=== PATIENT | female | born 1950 | race Caucasian/White ===

== ENCOUNTER 2023-12-28 13:03 | Emergency (ER) | payer MEDICARE, SELFPAY ==
[2023-12-28 13:06] VITALS: BP 112/70
[2023-12-28 13:33] VITALS: BMI 22.0
[2023-12-28 13:36] VITALS: BP 114/76
--- NOTE | 2023-12-28 13:44 | ED.GENMED ---
History of Present Illness
<Alanna Ayala PA-C - Last Filed: 12/29/23 22:28>
General
Chief Complaint: Abdominal Pain
Source: patient
Exam Limitations: none
Time Seen by Provider: 12/28/23 13:25
Nursing documentation reviewed up to this point in time: agreed with
Travel History
Have you had any contact with someone who has COVID-19?: No
Do you have any symptoms of coronavirus? Fever > 100 degrees, chills, cough, shortness of breath, sore throat, loss of taste or smell, muscle aches, or headache?: No
History of Present Illness
History of Present Illness:
Patient is a 73 year old female with hx hyperlipidemia presenting to the emergency department for evaluation of worsening right upper quadrant abdominal pain and associated nausea. Patient reports intermittent pain in the right upper quadrant over
the past 3 to 4 weeks. About 3 days ago she noticed both an increase in severity of pain and that the pain became more constant in nature. Patient has not noticed any exacerbating relieving factors although she does think it might be worse prior
to going to sleep when she is lying down. She does report associated mild nausea, but no vomiting. Patient has not noticed any specific correlation with food, although she does endorse significant worsening in pain yesterday evening and difficulty
sleeping after eating meatloaf for dinner. Patient denies any fever, chills, chest pain, shortness of breath, or cough. Patient denies diarrhea or constipation. Patient denies any dysuria or increasing frequency.
Patient does have a history of kidney stones.
Patient denies any recent travel or recent surgery.
Review of Systems
<Alanna Ayala PA-C - Last Filed: 12/29/23 22:28>
Review of Systems
Allergies reviewed?: Yes
All Other Systems: ROS reviewed and negative except as documented in HPI and ROS
Phy Exam
<Alanna Ayala PA-C - Last Filed: 12/29/23 22:28>
Physical Exam
Physical Exam:
Vitals: Patient's vital signs are stable. Afebrile
General: Patient is well appearing, no acute distress
Skin: Warm and dry, no rashes or lesions
Head: Normocephalic, atraumatic
Eyes: Sclera nonicteric. EOMs intact. No nystagmus.
Throat: Protecting airway. Uvula midline
Neck: Normal ROM, no cervical spine tenderness, no meningismus
Cardiac: Regular rate and rhythm, no murmurs.
Pulm: Normal respiratory effort, no wheezes, rales, rhonchi heard on exam.
Abdomen: Soft, very mild abdominal tenderness in right upper quadrant without any rebound tenderness or guarding. No abdominal tenderness. No CVA tenderness
Extremities: No evidence of cyanosis or edema
Neuro: AAOx3. CN II-XII intact. No focal neurologic deficits.
Psychiatric: Normal affect.
Course
<Alanna Ayala PA-C - Last Filed: 12/29/23 22:28>
Orders/Labs/Results
Orders:
Orders
12/28/23 13:44
US Abdomen Complete/Upper Urgent
Comment:
Reason For Exam: Right upper quadrant pain, +nausea
12/28/23 13:45
Electrocardiogram (*1) Urgent
Reason for Study: Abdominal Pain
EKG- Treatment ONCE
12/28/23 13:47
Complete Blood Count/With Diff Urgent
Comprehensive Metabolic Panel Urgent
Lipase Urgent
Comment: LIPASE ADDED ON BY FLOOR 2:10PM 12-28-23
12/28/23 14:12
Add On- LAB Urgent
Tests Added?: lipase
12/28/23 14:38
Iohexol [Omnipaque] See Protocol PO NOW STA
12/28/23 14:53
CR Chest - 2 Views Urgent
Comment:
Reason For Exam: right upper abdominal pain
12/28/23 14:55
CT Abd/pel Without Iv Or Oral Urgent
Comment:
Reason For Exam: right upper abdominal pain
12/28/23 14:58
D-Dimer Urgent
12/28/23 15:16
Urinalysis Reflex To Culture Urgent
Date Specimen was Collected: 12/28/23
Time Specimen was Collected: 15:01
Abnormal Lab Results
12/28/23 12/28/23
13:47 15:16
RBC 4.13 L 10^6/uL
(4.20-5.40)
MCH 32.4 H pg
(27.0-31.0)
Absolute Lymphs (auto) 1.0 L 10^3/uL
(1.2-3.4)
Lymphocytes % 19.4 L %
(20.5-51.1)
Glucose 103 H mg/dl
(70-99)
Urine Ketones 1+ A
(Negative)
12/28/23 13:47
12/28/23 13:47
Vital Signs
Initial and Last Documented VS:
Initial Vital Signs
Temp Pulse Resp BP Pulse Ox
97.9 F 72 16 112/70 100
12/28/23 13:06 12/28/23 13:06 12/28/23 13:06 12/28/23 13:06 12/28/23 13:06
Last Documented Vital Signs
Temp Pulse Resp BP Pulse Ox
97.9 F 72 12 114/76 99
12/28/23 13:06 12/28/23 13:45 12/28/23 13:45 12/28/23 13:36 12/28/23 13:45
<Scotty Holland MD - Last Filed: 12/28/23 15:55>
Orders/Labs/Results
Orders:
Orders
12/28/23 13:44
US Abdomen Complete/Upper Urgent
Comment:
Reason For Exam: Right upper quadrant pain, +nausea
12/28/23 13:45
Electrocardiogram (*1) Urgent
Reason for Study: Abdominal Pain
EKG- Treatment ONCE
12/28/23 13:47
Complete Blood Count/With Diff Urgent
Comprehensive Metabolic Panel Urgent
Lipase Urgent
Comment: LIPASE ADDED ON BY FLOOR 2:10PM 12-28-23
12/28/23 14:12
Add On- LAB Urgent
Tests Added?: lipase
12/28/23 14:38
Iohexol [Omnipaque] See Protocol PO NOW STA
12/28/23 14:53
CR Chest - 2 Views Urgent
Comment:
Reason For Exam: right upper abdominal pain
12/28/23 14:55
CT Abd/pel Without Iv Or Oral Urgent
Comment:
Reason For Exam: right upper abdominal pain
12/28/23 14:58
D-Dimer Urgent
12/28/23 15:16
Urinalysis Reflex To Culture Urgent
Date Specimen was Collected: 12/28/23
Time Specimen was Collected: 15:01
Abnormal Lab Results
12/28/23 12/28/23
13:47 15:16
RBC 4.13 L 10^6/uL
(4.20-5.40)
MCH 32.4 H pg
(27.0-31.0)
Absolute Lymphs (auto) 1.0 L 10^3/uL
(1.2-3.4)
Lymphocytes % 19.4 L %
(20.5-51.1)
Glucose 103 H mg/dl
(70-99)
Urine Ketones 1+ A
(Negative)
12/28/23 13:47
12/28/23 13:47
Vital Signs
Initial and Last Documented VS:
Initial Vital Signs
Temp Pulse Resp BP Pulse Ox
97.9 F 72 16 112/70 100
12/28/23 13:06 12/28/23 13:06 12/28/23 13:06 12/28/23 13:06 12/28/23 13:06
Last Documented Vital Signs
Temp Pulse Resp BP Pulse Ox
97.9 F 72 12 114/76 99
12/28/23 13:06 12/28/23 13:45 12/28/23 13:45 12/28/23 13:36 12/28/23 13:45
<Alanna Ayala PA-C - Last Filed: 12/29/23 22:28>
MDM/Problems Addressed
Differential Diagnosis Includes:
Not limited to: biliary colic, cholecystitis, choledocholithiasis, gastric ulcer, GERD, pancreatitis, pneumonia, PE, doubt ACS
MDM/Problems Addressed:
Patient is a 73 year old female presenting for evaluation of intermittent right upper quadrant with an acute worsening in severity yesterday evening with associated nausea. No fever or chills. Vital stable. Exam as above. Very mild right upper
quadrant tenderness without any rebound or guarding. Will check labs, lipase, urine. Will check D-dimer and chest x-ray. Will start with abdominal ultrasound and proceed abdomen CT if negative. Patient denies any analgesia at this time. Will
monitor closely and reassess.
Labs noted. No clinically significant abnormalities. D-dimer normal. Urine shows no signs of infection or blood. Chest x-ray normal without any signs of pneumonia. Abdominal ultrasound shows no evidence of gallstones or acute cholecystitis.
Given negative ultrasound�will check noncontrast CT to ensure no kidney stone to explain symptoms. Patient remained extremely well-appearing.
CT scan shows no acute abnormalities. Patient remains stable, in no apparent distress.
Workup here entirely negative. Suspect likely gastritis/ulcer. 6 no indication for admission at this time. Will discharge with PPI and GI follow-up. Return precautions discussed at length. Patient comfortable with plan. All questions answered.
Chronic conditions affecting care:
N/A
Acute Exacerbation and/or Progression of Chronic Illness:
N/A
<Alanna Ayala PA-C - Last Filed: 12/29/23 22:28>
*Radiology
Radiology exam reviewed: preliminary read by ED provider and radiology read reviewed
*Pulse Oximetry
Patient hypoxic: no
*EKG
Interpreted by ED Provider?: Yes
EKG Intrepretation Date: 12/28/23
Interpretation: normal
Comparison EKG: no comparison EKG present
Heart Rate: 60
Rate: normal
Rhythm: sinus
[place]: normal axis
Interval: normal interval
QRS Pattern: normal QRS
Ischemia: no ischemia
*Health Education Director Interpretation
Rate: Health Education Director- N/A
*Critical Care Note
Total Time (30-74mins, 75-104mins- exclusive of procedures): Not Applicable
ED Attending Note
<Alanna Ayala PA-C - Last Filed: 12/29/23 22:28>
-
Portions of this chart may have been created with voice recognition software.� Occasional wrong word or��sound alike� substitutions may have occurred due to the inherent limitations of voice recognition software.
<Scotty Holland MD - Last Filed: 12/28/23 15:55>
ED Attending Note
Patient seen and examined by attending physician: Yes
ED Attending Note:
HPI: 73-year-old female with past medical history of breast cancer status post double mastectomy, hyperlipidemia who presents to the emergency department for evaluation of abdominal pain. Patient reports onset of symptoms 3 weeks ago and they have
been intermittent since that time although she says more frequent over the past few days. She describes a dull aching pain in the right upper quadrant that does not radiate. No clear triggering or relieving factors noted although symptoms do seem
to be somewhat worse at nighttime. She says she has associated nausea but has not had any vomiting. She says she will have occasional loose stools chronically but no unusual bouts of diarrhea and has not been constipated. She has not had any
dysuria, hematuria, change in urinary frequency. Denies flank pain. Denies fever or chills. She denies any cough. Denies any shortness of breath or chest pain. She denies similar symptoms in the past. She does have a history of kidney stone
earlier this year. No history of gallstones. Denies prior abdominal surgeries.
ROS: Positive for abdominal pain, nausea; negative for vomiting, shortness of breath, chest pain, fever, chills, dysuria, hematuria, change in urinary frequency
Physical exam:
General: Awake, alert; no acute distress
Head: Normocephalic, atraumatic
Eyes: Conjunctiva normal
Throat: Airway intact, handling secretions
Neck: Trachea midline, supple without meningismus
Lungs: Clear to auscultation bilaterally, no wheezing, rales, rhonchi
Heart: Regular rate and rhythm, no murmurs, gallops, or rubs
Abd: Soft, non distended, completely nontender to deep palpation with a negative Coulter sign on my assessment; she has no abdominal masses
Back: She has no CVA tenderness
Neuro: Cranial nerves grossly intact, speech fluid
Skin: no rash
Extremities: No edema in extremities, equal pulses in all extremities
Differential diagnosis: Cholelithiasis, cholecystitis, duodenal ulcer/gastric ulcer, lower lobe pneumonia, pulmonary embolism, nephrolithiasis, hepatitis
Medical decision makin-year-old female presents for evaluation of intermittent right upper quadrant abdominal pains for the past 3 weeks�becoming somewhat more frequent. Her vital signs are normal. Physical exam as above�notably no tenderness
in her abdomen. Plan to place an IV check labs including a CBC and a CMP. Check lipase. Check urinalysis. Will send a D-dimer and chest x-ray. Check an upper abdominal ultrasound to start. Consider CT if ultrasound negative. Reassess after
the above.
Labs reviewed: CBC unremarkable, CMP no clinically significant abnormalities. D-dimer negative. Urinalysis negative for infection, no blood. Upper abdominal ultrasound was for cholelithiasis or cholecystitis or any other acute pathology. Sent
for CT to rule out kidney stone. If negative reasonable to discharge with GI referral on PPI with concern for possibly a duodenal ulcer.
Chronic conditions affecting care: N/A
Acute exacerbation or progression of chronic illness: N/A
History source: Patient
Data reviewed: N/A
Medications/testing considered: N/A
Social determinants of health: N/A
Discussion with other providers: N/A
Discharge Plan
Departure
Patient Disposition: Home (Routine Discharge)
Date of Disposition: 12/28/23
Time of Disposition: 16:41
Patient with high blood pressure during this ER visit?: No
Condition: Good
Covid-19: Not Applicable
Discharge Problem:
Abdominal pain
Instructions: Abdominal Pain, Adult ED
Prescriptions:
New
omeprazole 20 mg capsule,delayed release(DR/EC)
20 mg PO DAILY 14 Days Qty: 14 0RF
Referrals:
Jeramie Narvaez MD [Active] - Call in 1-3 days for appt
Edna Aden MD [Family Provider] - Follow up in 5-7 days
Activity Restrictions/Additional Instructions:
-Return to the emergency department with any high fevers, chills, severe abdominal pain, intractable nausea/vomiting, loss of appetite, vomiting blood, worsening in current symptoms, or any other concerns
-As discussed - we are not entirely sure what has been causing your abdominal pain today. I have sent a prescription to your pharmacy. You can take this daily for the next 2 weeks. You should follow-up with GI and your primary care provider for
further evaluation/management.
-It is important to stay well-hydrated. Take Tylenol/Motrin as needed for discomfort. Try to avoid foods high in acid that may further irritate stomach.
Interventions
Interventions:
*Risk Screen - Suicide Last Done: 12/28/23 13:33
*General Assessment Last Done: 12/28/23 13:33
*Neglect/Abuse Screening Last Done: 12/28/23 13:33
ED- Fall Risk Assessment Last Done: 12/28/23 13:33
*ED COVID-19 Vaccine History Last Done: 12/28/23 13:33
*Nursing Disposition Last Done: 12/28/23 16:54
DD-Lzduln-[id number] Assessment Last Done: 12/28/23 13:17
Discharge Date and Time
Discharge Date/Time: 12/28/23 16:55
Print Language: SINHALA
[2023-12-28 13:57] LABS: % Basophils 0.6 % (0-2); % Eosinophils 0.2 % (0-6); % Immature Granulocytes 0.4 % (0-0.5); % Lymphocytes 19.4 % (20.5-51.1); % Monocytes 9.1 % (1.7-9.3); % Neutrophils 70.3 % (42.2-75.2); Absolute Monocytes 0.5 10^3/uL (0.1-0.6); Absolute Neutrophils 3.7 10^3/uL (1.4-6.5); Hematocrit 39.5 % (37.0-47.0); Hemoglobin 13.4 g/dL (12.0-16.0); Mean Corp Hgb Conc. 33.9 g/dL (33.0-37.0); Mean Corpuscular Hgb 32.4 pg (27.0-31.0); Mean Corpuscular Volume 95.6 fL (81.0-99.0); Mean Platelet Volume 9.9 fL (7.4-10.4); Nucleated Red Blood Cells % 0 %; Platelet Count 197 10^3/uL (130-400); Red Blood Cell Count 4.13 10^6/uL (4.20-5.40); Red Cell Dist. Width 12.9 % (11.5-14.5); White Blood Cell Count 5.3 10^3/uL (4.8-10.8)
[2023-12-28 14:05] LABS: ALT (SGPT) 18 U/L (0-35); AST (SGOT) 27 U/L (14-36); Albumin 4.1 g/dl (3.5-5.0); Alkaline Phosphatase 63 U/L (38-126); Blood Urea Nitrogen 11 mg/dl (7-17); Calcium 9.5 mg/dl (8.4-10.2); Carbon Dioxide 28 mmol/L (22-30); Chloride 106 mmol/L (98-107); Estimated Creatinine Clearance 70 ml/min; Glucose 103 mg/dl (70-99); Sodium 138 mmol/L (135-145); Total Bilirubin 0.8 mg/dl (0.2-1.3); Total Protein 6.4 g/dl (6.3-8.2); eGFR > 60.00
[2023-12-28 14:30] LABS: Lipase 71 U/L (23-300)
[2023-12-28 15:22] LABS: D-Dimer 0.32 ug/mlFEU (0.00-0.50)
[2023-12-28 15:26] LABS: Urine Albumin Negative (Neg - Trace); Urine Bilirubin Negative (Negative); Urine Character Clear (Clear); Urine Color Yellow; Urine Glucose Negative (Negative); Urine Ketone 1+ (Negative); Urine Leukocyte Negative (Negative); Urine Nitrite Negative (Negative); Urine Occult Blood Negative (Negative); Urine Specific Gravity 1.015 (<1.030); Urine Urobilinogen Negative (Neg - 1+)
== END 2023-12-28 16:55 | disposition home or self-care (01) ==
LOC: EMR 13:03
PROVIDERS: Physician Assistant; EMERGENCY PHYSICIAN Emergency Medicine; FAMILY PHYSICIAN Internal Medicine
DX: R10.11 Right upper quadrant pain (principal); E78.00 Pure hypercholesterolemia, unspecified
CPT/HCPCS: 99284; 71046; 74176; 76700; 80053; 81003; 83690; 85025; 85379; 93005